=== PATIENT | female | born 1970 | race Caucasian/White ===

== ENCOUNTER → 2024-12-26 19:37 | Outpatient (REF) | payer BC, SELFPAY | LOC: WDC 19:37 | PROVIDERS: ATTENDING PHYSICIAN Obstetrics & Gynecology | DX: Z12.31 Encounter for screening mammogram for malignant neoplasm of breast (principal) | CPT/HCPCS: 77063; 77067 ==

== ENCOUNTER → 2025-02-18 10:15 | Outpatient (REF) | payer BC, SELFPAY | LOC: CLAB 10:15 | PROVIDERS: ATTENDING PHYSICIAN Specialist | DX: N62 Hypertrophy of breast (principal) | CPT/HCPCS: 88305 ==